=== PATIENT | male | born 1960 | race Caucasian/White ===

== ENCOUNTER 2019-07-10 10:49 | Emergency (ER) | payer OTHER ==
[~2019-07-10] VITALS: Ht 185.4 cm; Wt 104.3 kg
[2019-07-10] MEDS ORDERED: DICY20TA PO ×2 (15:21→15:22)
[2019-07-10] MEDS ORDERED: PEPCID AC20 MG PO (15:22)
== END 2019-07-10 16:08 | disposition home or self-care (01) ==
LOC: ER 10:49
DX: K29.60 Other gastritis without bleeding (principal)